=== PATIENT | male | born 1960 | race Caucasian/White ===

== ENCOUNTER → 2016-08-14 | Outpatient (CLI) | payer BC ==
[~2016-08-14] MED LIST: CETI10TA84 PO; ETOD-146 PO; RED600TA PO
[2016-08-14 11:45] LABS: BASO % 0.3 %; BASO ABS # 0.02 K/uL (0-0.2); COMPLETE YES; EOS % 1.4 %; HEMATOCRIT 41.6 % (42-52); LYMPH % 25.3 %; LYMPH ABS # 1.45 K/uL (1.2-3.4); MEAN CORPUSCULAR HGB CONC 35.6 g/dl (32-36); MEAN PLATELET VOLUME 10.7 fL (7.4-10.4); MONO % 7.3 %; NEUT % 65.7 %; PLATELET COUNT 178 K/uL (130-400); RED BLOOD COUNT 4.62 M/uL (4.7-6.1); WHITE BLOOD COUNT 5.73 K/uL (4.8-10.8)
[2016-08-14 11:53] LABS: INR 1.1 (0.9-1.1); PROTHROMBIN TIME (PATIENT) 11.6 SECONDS (9.0-12.0)
[2016-08-14 11:56] LABS: POTASSIUM 4.1 mmol/L (3.5-5.1)
== END | disposition home or self-care (01) ==
LOC: C.CPL 11:04
DX: Z01.818 Encounter for other preprocedural examination (principal)

== ENCOUNTER → 2016-08-18 | Day surgery (SDC) | payer BC ==
[2016-08-05 09:03] VITALS: Ht 172.7 cm; Wt 81.8 kg
[~2016-08-18] VITALS: Ht 172.7 cm; Wt 81.8 kg
[~2016-08-18] MED LIST changes: +ATROPINE SULFATE 0.1 MG/ML 5ML SYR IV PRN; +DEXAMETHASONE SOD INJ 4 MG/ML VIAL ONE; +EpHEDrine SULFATE INJ 50 MG/ML AMP IV PRN; +FENTANYL CITRATE INJ 50 MCG/1 ML 2 ML VIAL IV PRN; +FENTANYL CITRATE INJ 50 MCG/1 ML 2 ML VIAL ONE; +HYDROCODONE/ACETAMOPHEN 5/325MG TAB PO PRN; +LABETALOL HCL IV 5 MG/ML 20ML IV PRN; +LACTATED RINGER'S 1000ML 1,000 ML IV SCH; +LIDOCAINE HCL 2% 2 ML VIAL (20MG/ML) ONE; +MIDAZOLAM HCL 1 MG/ML 2ML VIAL ONE; +OFLOXACIN 0.3% OP SOLN 5 ML BTL ONE; +ONDANSETRON INJ 2 MG/ML 2 ML VIAL IV PRN; +ONDANSETRON INJ 2 MG/ML 2 ML VIAL ONE; +PROMETHAZINE HCL INJ 12.5 MG in SODIUM CHLORIDE 0.9% 50ML 50 ML IV PRN; +PROPOFOL IV EMULSION 10 MG/ML 20 ML VIAL IV ONE
--- NOTE | 2016-08-18 06:37 | History & Physical Bridge - [place] ---
H&P Re-Evaluation Bridge Note: I have examined the patient, reviewed the History & Physical and in the interval since the performance of the History & Physical I have noted the following changes of clinical significance: No changes noted
--- NOTE | 2016-08-18 06:54 | History and Physical: Surg Cnt ---
History & Physical Date Aug 18, 2016. Chief Complaint RIGHT OTITIS MEDIA WITH EFFUSION/ETD History of Present Illness The patient is a 56 year old male with complaints of RIGHT OTITIS MEDIA WITH EFFUSION/ETD. Past Medical/Surgical History PMH: OM/ETD, LPR, TINNITUS PSH: S/P R M&T, S/P T&A Additional History Hepatic Disease: No Endocrine Disorder: No Kidney Disease: No Hypertension: No Heart Disease: No Bleeding Tendencies: No Infectious Diseases: No Allergies Coded Allergies: No Known Allergies (Unverified , 08/18/16) Home Medications Scheduled Red Yeast Rice Extract (Red Yeast Rice), 2 TAB PO QAM Scheduled PRN Cetirizine (Zyrtec), 10 MG PO DAILY PRN for ALLERGIES Etodolac (Lodine), 1 TAB PO DAILY PRN for Pain Physical Examination Skin: warm/dry, no rash Eyes: normal inspection, EOMI, sclerae normal ENT: + pertinent finding (SEVERELY RETRACTED R TM WITH SCLEROSIS IN ANTEROINFERIOR TM) Head: normocephalic, atraumatic Neck: supple, no adenopathy, trachea midline Respiratory/Chest: lungs clear, normal breath sounds, no respiratory distress Cardiovascular: regular rate, rhythm, no edema, no murmur Neurologic/Psych: no motor/sensory deficits, alert, normal reflexes, oriented x 3 Diagnosis RIGHT OTITIS MEDIA WITH EFFUSION/ETD Plan of Treatment R M&T WITH T-TUBE
--- NOTE | 2016-08-18 07:46 | [facility] Operative Report ---
Operative Report Operative Date Aug 18, 2016. Pre-Operative Diagnosis Right Eustachian Tube Dysfunction Post-Operative Diagnosis Same Procedure(s) Performed Right Myringotomy And T-Tube Insertion Surgeon Dr. Leonardo [employer] Manager Surgeon(s) None Estimated Blood Loss 0 mL Findings 1. SEVERELY RETRACTED R TYMPANIC MEMBRANE ANTERIORLY WITH ATROPHIC TM 2. DRY R MIDDLE EAR SPACE Specimens None I attest to the content of the Intraoperative Record and any orders documented therein. Any exceptions are noted below.
--- NOTE | 2016-08-18 07:48 | Discharge Instructions ---
Discharge Instructions Admission Reason for Admission: Eustachian Tube Dysfunction Left Asymmetrical Snhl Discharge Discharge Diagnosis / Problem: SAME Discharge Goals Goal(s): Improve function Activity Recommendations Activity Limitations: as noted below DRY RIGHT EAR PRECAUTIONS WHILE T-TUBE IN PLACE . Current Hospital Diet Patient's current hospital diet: Discharge Diet Recommended Diet: Regular Diet Procedures Procedures Performed: Right Myringotomy And T-Tube Insertion Pending Studies Studies pending at discharge: no Medical Emergencies . Who to Call and When: Medical Emergencies: If at any time you feel your situation is an emergency, please call 911 immediately. . Non-Emergent Contact Non-Emergency issues call your: Surgeon . . "Provider Documentation" section prepared by Ander Leonardo. VTE Core Measure Inpt VTE Proph given/why not?: SCD's
[2016-08-18 08:28] VITALS: TEMP 36.4
--- NOTE | 2016-08-18 08:42 | Anesthesia Progress Nt - [facility] ---
Anesthesia Post Op Note Date & Time Aug 18, 2016 at 08:43 Vital Signs Pain Intensity: 0 Vital Signs Past 12 Hours Date Time Temp Pulse Resp B/P Pulse Ox O2 Delivery O2 Flow Rate FiO2 08/18/16 08:20 36.4 68 12 117/78 95 Room Air 08/18/16 08:19 70 14 08/18/16 08:19 71 14 95 08/18/16 08:18 117/78 08/18/16 08:14 70 19 99 08/18/16 08:14 71 19 08/18/16 08:13 112/68 08/18/16 08:09 73 18 08/18/16 08:09 74 18 98 08/18/16 08:08 108/69 08/18/16 08:04 69 15 08/18/16 08:04 69 15 99 08/18/16 08:03 100/69 08/18/16 08:00 77 12 99 08/18/16 08:00 77 12 08/18/16 07:58 91/66 08/18/16 07:55 36.4 71 12 93/67 98 Diffusion Mask 6 08/18/16 07:55 74 9 08/18/16 07:55 74 9 99 08/18/16 06:33 36.5 65 16 122/83 96 Room Air Notes Mental Status: alert / awake / arousable, participated in evaluation Pt Amnestic to Procedure: Yes Nausea / Vomiting: adequately controlled Pain: adequately controlled Airway Patency, RR, SpO2: stable & adequate BP & HR: stable & adequate Hydration State: stable & adequate Anesthetic Complications: no major complications apparent
--- NOTE | 2016-08-18 08:54 | OPERATIVE REPORT ---
DATE OF OPERATION: 08/18/2016 PREOPERATIVE DIAGNOSES: 1. Right eustachian tube dysfunction. 2. Right chronic otitis media. POSTOPERATIVE DIAGNOSES: 1. Right eustachian tube dysfunction. 2. Right chronic otitis media. PROCEDURE: Right myringotomy and tube placement with T tube. SURGEON: Dr. Ander Leonardo. ANESTHESIA: General laryngeal mask airway. ESTIMATED BLOOD LOSS: Zero. FINDINGS: 1. Severely retracted right tympanic membrane anteriorly with retraction pocket and atrophic tympanic membrane. 2. Dry middle ear space. SPECIMENS: None. COMPLICATIONS: None. INDICATIONS FOR THE PROCEDURE: The patient is a 56-year-old male with the above-mentioned history who underwent right myringotomy and tube placement in the past and whose tube has extruded but he continues to have significant symptoms of right eustachian tube dysfunction and otitis media. He was found to have significant retraction of the right tympanic membrane anteriorly and it was recommended that he have a T-tube placed. He presents for the above-mentioned procedure on an outpatient elective basis. DETAILS OF PROCEDURE: After informed consent had been obtained from the patient, the patient was brought to the operating room and placed on the operating table in a supine position. Monitors were placed after induction of general anesthesia via laryngeal mask airway. The patient's head was gently turned to the left and a speculum was inserted into the right external auditory canal. The operating microscope was wheeled in and used to perform the procedure. Cerumen loop was used to remove excess cerumen. There was cerumen overlying the retracted right tympanic membrane anteriorly and the cerumen was removed using a Simpson needle and alligator forceps. Underneath this was a very thin atrophic tympanic membrane with severe retraction. Also, there was sclerosis of the right tympanic membrane. A myringotomy knife was used to make a radial incision in the posterior inferior quadrant of the tympanic membrane and the middle ear space was found to be dry. A silicone T-tube was then placed. Floxin drops were instilled into the middle ear space and a cotton ball was placed into the conchal bowl. This marked the end of the case. The patient tolerated the procedure well and there were no apparent complications. The patient had his laryngeal mask airway removed and was transferred to the recovery room in stable condition. I attest to the content of the Intraoperative Record and any orders documented therein. Any exceptio ns are noted below.
[2016-08-18 09:06] VITALS: BP 112/76; PULSE 66; O2SAT 96
== END | disposition home or self-care (01) ==
LOC: X.SURG 06:26
DX: H69.91 Unspecified Eustachian tube disorder, right ear (principal); H66.91 Otitis media, unspecified, right ear; E78.5 Hyperlipidemia, unspecified; Z68.27 Body mass index [BMI] 27.0-27.9, adult